=== PATIENT | female | born 1970 | race Two or more races ===

== ENCOUNTER 2016-11-18 18:04 | Emergency (ER) | payer SELFPAY ==
[~2016-11-18] VITALS: Ht 152.4 cm; Wt 61.2 kg
[2016-11-18 18:23] VITALS: BP 144/100
[2016-11-18] MEDS ORDERED: TETANUS-DIPTH-ACEL PERTUSSIS 0.5ML SYRG IM ONE (20:00)
[2016-11-18] MEDS ORDERED: BACITRACIN TOP OINT 1 UD PKG TOP ONE (20:00)
[2016-11-18] MEDS ORDERED: LIDOCAINE 1% HCL (LOCAL ANESTH.) INJ 20ML MDV IJ ONE (20:00)
== END 2016-11-18 20:53 | disposition home or self-care (01) ==
LOC: ER 18:07
DX: S91.011A Laceration without foreign body, right ankle, initial encounter (principal); I10 Essential (primary) hypertension; W26.8XXA Contact with other sharp object(s), not elsewhere classified, initial encounter; Y93.89 Activity, other specified; Y99.8 Other external cause status; Y92.89 Other specified places as the place of occurrence of the external cause
CPT/HCPCS: 12002; 90471; 90715; 99283; J2001; 96372